=== PATIENT | male | born 1995 | race Caucasian/White ===

== ENCOUNTER 2018-01-29 01:05 | Inpatient (IN) | payer OTHER ==
[~2018-01-29] VITALS: Ht 175.3 cm; Wt 85.7 kg
[2018-01-29] VITALS (8 sets, daily range): BP systolic 95–147; BP diastolic 55–87
[~2018-01-29 01:05] MED LIST: CIPRO500 MG PO; COLACE1 EAC1 RC; DOXYCYCLINE 10100 MG PO; HYDROCODONE-AP1 EAC6 PO; HYDROCORTISONE30 G9 RECTAL; NOHOMEMEDICATIONS; TRAMADOL 50 MG50 MG PO
[2018-01-29] MEDS ORDERED: INDOMETHACIN 5050 M1 (01:21)
[2018-01-29 01:52] LABS: ABSOLUTE LYMPHOCYTES 1.8 thou/uL (0.8-5.3); ABSOLUTE MONOCYTES 1.1 thou/uL (0.0-1.2); ABSOLUTE NEUTROPHILS 9.7 thou/uL (1.6-8.1); BASOPHILS 0.3 %; EOSINOPHILS 0.2 %; HEMOGLOBIN 15.5 gm/dL (14.0-18.0); LYMPHOCYTES 14.1 %; MCHC 34.4 g/dL (28.0-37.0); MCV 84.2 fL (80.0-100.0); MPV 7.7 fl. (7.2-11.1); NUCLEATED RBCS 0 /100WBC; PLATELET COUNT* 205 thou/uL (150-400); POLYS 76.4 %; RBC 5.34 mil/uL (4.50-6.00); RDW-CV 13.7 % (10.5-14.5); WBC 12.6 thou/uL (4.0-11.0)
[2018-01-29 01:58] LABS: INR 1.1; PROTIME 10.7 Seconds (9.20-11.50)
[2018-01-29 02:06] LABS: CALCIUM 8.4 mg/dL (8.5-10.1); CREATININE 0.8 mg/dL (0.6-1.3); POTASSIUM 3.6 mmol/L (3.5-5.1)
[2018-01-29 02:12] LABS: ALBUMIN 3.8 g/dL (3.4-5.0); TOTAL BILIRUBIN 0.7 mg/dL (<0.1-1.0); TOTAL PROTEIN 7.6 g/dL (6.4-8.2); URIC ACID* 4.8 mg/dL (2.6-7.2)
[2018-01-29 04:05] LABS: ESR (SEDRATE) 18 mm/hr (0-15)
--- NOTE | 2018-01-29 07:41 | NUR ---
PT ADMITTED TO UNIT FROM ER. ASSESSMENT DOCUMENTED, FALL AGREEMENT WENT OVER, PT STATED UNDERSTANDING. PAIN MEDS GIVEN PER E-NOV. IV PATENT, FLUIDS INFUSING. ORTHO CONSULTED AND ASPIRATED KNEE. WILL CONTINUE WITH PLAN OF CARE.
[2018-01-29 08:05] LABS: CLARITY CLOUDY; COLOR AMBER; SOURCE SYNOVIAL; TOTAL VOLUME 39 ml
[2018-01-29 08:06] LABS: BF RBC 16100 /mm3; TOTAL CELL COUNT 82786 /mm3
[2018-01-29 08:51] LABS: BF LYMPHOCYTES 1 %; BF MONOCYTES 2 %; BF POLYS 97 %
[2018-01-29 15:20] LABS: SOURCE L.KNEE ASPIRATE
--- NOTE | 2018-01-29 17:03 | NUR ---
Pt in surgery during time SW was going to meet with pt; now pt is back on unit with his mom at bedside. SW to continue to follow to complete assessment and assist with any dc planning needs.
--- NOTE | 2018-01-29 18:38 | NUR ---
PATIENT HAS BEEN A/O X 4 THIS SHIFT. PATIENT HAD LEFT KNEE SURGERY THIS SHIFT. BULKY DRESSING IN PLACE AND HEMOVAC PATENT. NEW IV RESTARTED AND IV FLUIDS CONTINUE TO INFUSE. ID CONSULT NOTED. DIET RESUMED AFTER SURGERY. FAMILY AT BEDSIDE THIS AFTERNOON. HOURLY ROUNDING COMPLETED. CALL LIGHT WITHIN REACH. WILL CONTINUE WITH PLAN OF CARE.
[2018-01-30 04:00] VITALS: BP 104/42
--- NOTE | 2018-01-30 05:26 | NUR ---
PT SLEPT MOST OF SHIFT. ASSESSMENT DOCUMENTED. MEDS GIVEN PER E-NOV. PT STATED AT BEGINING OF SHIFT HE HAD A HEADACHE AND HIS LEFT KNEE PAIN WAS VERY BAD. DR SONIA MACIEL RECIEVED. IV PATENT, FLUIDS INFUSING. HEMAVAC IN PLACE. WILL CONTINUE WITH PLAN OF CARE.
[2018-01-30 08:30] VITALS: BP 117/72
--- NOTE | 2018-01-30 10:04 | OP ---
[address] [address] OPERATIVE REPORT Name: TYLER JONES Room: [address] IN M.R.#: [id number] Admission: 01/29/18 Attend Phys: Karis Salazar MD Discharge: Date of : 89 Report #: [id number] THIS REPORT FOR: //name// CC: [facility] physician/PCP Karis Salazar DICTATED BY: Priyank Paris DATE OF SERVICE: 01/29/2018 PREOPERATIVE DIAGNOSIS: Left knee septic arthritis. POSTOPERATIVE DIAGNOSIS: Left knee septic arthritis. PROCEDURE: Left knee arthroscopic lavage, synovectomy and intra-articular cultures. SURGEON: Ry Johnson DO [employer] LEAK TESTER: Priyank Paris DO ANESTHESIA: General. ESTIMATED BLOOD LOSS: 10 mL. SPECIMENS: Synovium and cultures. COMPLICATIONS: None apparent. ANTIBIOTICS: The patient is already on vancomycin. CONDITION: Stable, transferred to PACU. DISPOSITION: PACU to Med/Surg. PERTINENT HISTORY AND PHYSICAL: This is a 23-year-old male with quite significant new onset left knee pain and effusion. He presents to [facility], his left knee effusion was aspirated this morning and the aspirate came back concerning for septic arthritis left knee with a high cell count and percentage of PMNs. The cell count was 82,000 and the percent PMNs was 97%. He also had a high systemic white blood cell count and high inflammatory markers making the probability of septic arthritis very likely. We recommended left knee arthroscopic lavage and incision and drainage. We discussed the procedure to be performed in great detail including, but not limited to the risks, benefits, potential complications, and alternatives including, but not limited to infection, blood loss, [place] [address] OPERATIVE REPORT Name: KARENSANTOSHGRANT Luong Room: [address] M.R.#: [id number] Admission: 01/29/18 Attend Phys: Karis Salazar MD Discharge: Date of : 93 Report #: [id number] tissue, damage to blood vessels and nerves, continued pain, worsening pain, numbness, tingling, weakness, paralysis, loss of function, intraoperative fracture, postoperative fracture, damage to cartilage, damage to bone, posttraumatic arthritis, persistent infection, inability to ambulate, inability to use the leg, stiffness, loss of range of motion, need for repeat I and D, drain site morbidity, issues with drains, need for further surgery, complications with anesthesia, thrombus, as well as other imponderables. Again, we did discuss that he would possibly need a repeat I and D in the next couple of days and he understands this depending on how well he does postoperatively. He signed consent and wished to proceed. DESCRIPTION OF PROCEDURE: After written consent was obtained, the patient was transferred to the operative suite and placed in the supine position on the operative table. Anesthesia was induced via the anesthesia team. A well-padded pneumatic tourniquet was placed on the left thigh. The left lower extremity was placed in the arthroscopic leg velasco. The left lower extremity was sterilely prepped and draped with ChloraPrep times 2. Timeout was performed. The correct patient, surgical site, procedure to be performed, antibiotics and surgeon were confirmed. The lateral portal site made with a #15 blade knife followed by medial portal. Two trocars were inserted. Inflow and outflow were established. Immediately upon removal of the trocar cannula, there was melissa purulence expressed from the knee. This was collected and cultures were taken. Next, approximately 9 liters of arthroscopic fluid were lavaged through the knee. The camera was inserted through the lateral portal and arthroscopic grasper through the medial portal and a synovial biopsy was removed and sent for analysis. Next, arthroscopic shaver was inserted and arthroscopic synovectomy of the inflamed synovitic tissue was performed. When this deemed to be appropriate, the remainder of the fluid was lavaged through the knee. One medium Hemovac drain was inserted through the medial portal. The residual fluid was drained from the knee. All arthroscopic instruments were removed. The medial portal was closed with a 3-0 nylon suture in simple interrupted fashion as close as possible to the drain, which was coming out the portal site. The drain was then sewn in place with a nylon suture. The lateral portal was closed with a 3-0 nylon suture in simple interrupted fashion. Xeroform, 4 x 4s, ABD pads, sterile cast padding, and Vikas wrap were used as sterile dressing. Anesthesia was reversed via the anesthesia team. The patient was transferred back to the transfer cart and transferred to the postanesthesia care unit in stable condition. The patient appeared to tolerate this procedure well. There were no obvious complications apparent. Needle and sponge counts correct per the operating room team. [address] [address] OPERATIVE REPORT Name: TYLER JONES Room: [address] IN M.R.#: [id number] Admission: 01/29/18 Attend Phys: Karis Salazar MD Discharge: Date of : 93 Report #: [id number] DISPOSITION: Continue drain left knee. Continue antibiotics per primary and/or consult service. We will follow the patient for need for repeat I and D. <ELECTRONICALLY SIGNED> By: Ry Johnson DO 01/30/18 1004 [id number] Johnson DO /nt
--- NOTE | 2018-01-30 11:38 | CON ---
[address] [address] CONSULTATION Name: SANTOSH JONESGRANT Luong Room: [address] IN M.R.#: [id number] Admission: 01/29/18 Attend Phys: Karis Salazar MD Discharge: Date of : 93 Report #: [id number] THIS REPORT FOR: //name// CC: [facility] physician/PCP Karis Salazar DATE OF SERVICE: 01/29/2018 REFERRING PHYSICIAN: Dr. Cuevas, REASON FOR EVALUATION: Left knee septic arthritis. HISTORY OF PRESENT ILLNESS: Chart reviewed, patient examined. A 23-year-old man with known significant medical history who without apparent unseen injury, developed left knee pain, it became quite severe. He did have some night sweats and fevers up to 102.4. Denies any significant pulmonary or gastrointestinal related complaints. Aspirations showed marked elevated white count 82,786 ,97% polys, cultures are pending. Chest x-ray was otherwise clear. On questioning, he denies any particular risk factors. He works at [employer]. He has not had any recent travel, perhaps has had some animal exposure, although no one recent. He is not sexually active, although he denies any dietary indiscretion. He has not had recent dental procedure. Empirically placed on antimicrobials with vancomycin. ALLERGIES: None known. MEDICATIONS: Vancomycin, ondansetron, morphine as needed. PAST MEDICAL HISTORY: Previous surgeries to his stomach and his thigh as a child. Does have anxiety. 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 FAMILY HISTORY: Noncontributory. REVIEW OF SYSTEMS: As above. PHYSICAL EXAMINATION: GENERAL: Somewhat lethargic. He is in ulry-fk-ltqmikdx distress, appears generally well nourished. VITAL SIGNS: Temperature 98.5, after T-max of 102.2 overnight. Pulse 111, respirations 16, blood pressure 140/81. SKIN: Warm, dry, no rashes. HEENT: Unremarkable. NECK: [place] [address] CONSULTATION Name: JONESTYLER Room: [address] IN [facility]#: [id number] Admission: 01/29/18 Attend Phys: Karis Salazar MD Discharge: Date of : 93 Report #: [id number] LUNGS: Clear to auscultation. HEART: Tachycardic, regular. No appreciated murmur. ABDOMEN: Soft, nontender. EXTREMITIES: He has got a compressive dressing over the left distal thigh and proximal leg to involve the knee. GENITOURINARY: Deferred. RECTAL: Deferred. LABORATORY DATA: Gram stain of the synovial fluid shows many wbc's, no organisms. Fluid count, 16,100 red cells, 82,786 white cells, 97% polys, 2% monos, 1% lymphs. Chest x-ray was unremarkable. Knee plain film showed no fracture. CBC: White count of 12.6, H and H 15.5 and platelets of 205. Sed rate of 18. Lactic acid 1.1. CRP of Liver functions unremarkable. Albumin 3, total protein 7.6. ASSESSMENT: Inflammatory process involving the left knee, certainly would be concerned about septic etiology. Agree with empiric antimicrobial therapy, would expect a bacteremic seeding. Other considerations include crystal arthropathy, plus reactive arthritis. We will check urine studies. Await results. <ELECTRONICALLY SIGNED> By: Bao Kaiser MD 01/30/18 1138 1051 1248Jokary Kaiser MD /nt
[2018-01-30 14:09] LABS: BODY FLUID PROTEIN 2.5 g/dL (())
--- NOTE | 2018-01-30 15:44 | NUR ---
CM SPOKE TO THE PATIENT TO DISCUSS HOME SITUATION, DISCHARGE PLANNING, AND TO INFORM OF THE ROLE OF CM. PATIENT ALERT, ORIENTED, ACTIVE AND INDEPENDENT. PATIENT WORKS AND DRIVES. PATIENT INFORMS THAT HE HAS A SET OF CRUTCHES THAT WERE LENT TO HIM. PATIENT DOES NOT CURRENTLY HAVE INSURANCE. CM PROVIDED PATIENT A COMMUNITY RESOURCE LIST, LIST OF SAFETY NET CLINICS, AND A PRESCRIPTION ASSISTANCE CARD. CM WILL REMAIN AVAILABLE TO ASSIST AND FOLLOW NEEDED.
[2018-01-30 16:58] VITALS: BP 131/83
--- NOTE | 2018-01-30 18:29 | NUR ---
PATIENT IS ALERT AND ORIENTED TODAY VERY PLEASANT. UP WITH STAND BY ASSIST TO THE RESTROOM. VITAL SIGNS ON ROOM AIR. SOME PAIN THAT IS SOMEWHAT CONTROLLED WITH IV AND ORAL PAIN MEDICATIONS. DRAIN IN LEFT KNEE IS NOT WORKING, HEMOVAC IS LEAKING, GOING TO [facility]AM[facility] AND SEE THAT HELPS, ORTHO NOTIFIED AND THEY WILL CHECK ON IT TOMORROW. CALL LIGHT IS IN REACH, WILL CONTINUE TO MONITOR.
[2018-01-30 19:45] VITALS: BP 111/78
--- NOTE | 2018-01-31 05:09 | NUR ---
PT SLEPT AT INTERVALS LATER IN THE NIGHT, IV FLUIDS AND VANC GIVEN, PLEASANT, FAMILY HERE UNTIL LATE LAST NIGHT, PT NPO SINCE MIDNIGHT FOR POSSIBLE PROCEDURE LATER TODAY. PRN PAIN, ELEVATION AND ICE GIVEN FOR LEFT KNEE PAIN, UP SBA TO THE BATHROOM, CALL LIGHT IN REACH, WILL CONTINUE TO MONITOR
[2018-01-31 16:02] VITALS: BP 139/80
--- NOTE | 2018-01-31 16:41 | NUR ---
SW followed up with pt. SW was told that pt asking questions about billing. Pt told SW that he called and spoke with billing who advised pt to wait until receiving bill and then pt could follow up with financial assistance at that time. Pt did not have any other questions or anticipated dc needs. SW to continue to follow.
--- NOTE | 2018-01-31 17:48 | NUR ---
PATIENT IS ALERT AND ORIENTED VERY PLEASANT. VITAL SIGNS STABLE ON ROOM AIR. HAS BEEN UP WALKING [place] TODAY AND [facility]. SOME COMPLAINTS OF MILD PAIN BUT HAS ONLY NEEDED ORAL PAIN MEDICATION ONE TIME TODAY. IV ANTIBIOTICS RUNNING. CALL LIGHT IS IN REACH, WILL CONTINUE TO MONITOR.
[2018-01-31 20:20] VITALS: BP 133/78
--- NOTE | 2018-02-01 05:13 | NUR ---
PT SLEPT AT INTERVALS DURING THE NIGHT, IV ANTIBITOICS GIVEN, NEW IV STARTED EARLY THIS AM, PLEASANT, ORAL PAIN MED AT HS, PLEASANT, UP SBA TO THE BATHROOM, STONE WRAP INTACT TO LEFT KNEE, CALL LIGHT IN REACH, WILL CONTINUE TO MONITOR
[2018-02-01 08:15] VITALS: BP 132/70
[2018-02-01 11:40] VITALS: BP 133/78
[2018-02-01] MEDS ORDERED: ASPIRIN325 PO (11:44)
--- NOTE | 2018-02-01 11:44 | NUR ---
CONSULTED TO PLACE PICC FOR RESTAURANT LEAD ATB FOR SEPTIC KNEE. RISK AND BENIFIT DISCUSSED WITH PT. VOICED UNDERTANDING AND AGREED. ORDER AND CONSENT NOTED. RIGHT UPPER ARM ASSESSED. UPPER BASILIC IDENTIFIED AND NOTED TO BE WIDLEY PATENT. 4FR POWER INJECTABLE SINGLE LUMAN PICC PLACED PER HOSPITAL POLICY. LINE TRIM AT 48CM AND ADVANCED 48CM LEAVING 0CM EXTERNAL. LINE SECURED AND RELEASED FOR IMMEDIATE USE.
[2018-02-01] MEDS ORDERED: MIRALAX17 GM PO (11:45)
[2018-02-01] MEDS ORDERED: CEFTRIAXONE2 G1 IVPB (11:47)
[2018-02-01] MEDS ORDERED: DOXYCYCLINE 10100 MG IVPB (11:48)
[2018-02-01] MEDS ORDERED: TRAMADOL 50 MG50 MG PO (11:48)
--- NOTE | 2018-02-01 12:36 | NUR ---
PATIENT HAS BEEN ALERT AND ORIENTED TODAY VERY PLEASANT. UP AD INGA IN ROOM. PICC STARTED INSERTED TODAY IN RIGHT UPPER ARM, PATIENT IS BEING DISCHARGED TO HOME WAITING ON CASE MANAGEMENT TO SET UP OUTPATIENT IV ANTIBIOTICS. CALL LIGHT IS IN REACH, WILL PASS ON REPORT TO NEXT NURSE.
--- NOTE | 2018-02-01 15:50 | NUR ---
Dr Kaiser discussed need for pt to have IV abx at dc. MINDA discussed what options pt might have with OP therapy infusion at [facility]--Pt pay would be $412.50 per day. MINDA called and faxed info to [facility] and chilel per day would be over $80/day and upfront cost needed over $200. MINDA faxed referral and info to [facility] and Amanda called MINDA and provided info on pt to sign letter of agreement if Medicaid not active within 90 days, then pt responsible for cost and to work out payments with [facility]. [facility] nurse came to meet with pt and provide teaching. Pt and pt family to assist with administering and pt to return for labs once a week. Pt in agreement with plan. Pt to dc home with family support today, Thursday 02/01.
[2018-02-01 15:56] VITALS: BP 133/78
--- NOTE | 2018-02-01 17:15 | NUR ---
PATIENT DISCHARGED TO HOME ON IV ANTIBIOTICS. TEACHING DONE BY VALENCIA, SUPPLIES ARE TO BE DELIVERED TO HOUSE. PICC LINE IN PLACE. IV REMOVED. DISCHARGE PAPERS REVIEWED AND SIGNED. PRESCRIPTION AND INFORMATION SHEETS GIVEN. PATIENT DENIES ANY FURTHER NEEDS. PATIENT TAKEN BY WHEELCAHIR TO EXIT. LEFT WITH GRANDMOTHER.
--- NOTE | 2018-02-06 11:11 | PATH ---
[address] [address] PATHOLOGY RPT PROCEDURE Name: TYLER JONES Room: [address] IN M.R.#: [id number] Admission: 01/29/18 Date of : 89 Discharge: 02/01/18 Report #: [id number] Path Case #: [id number] [facility] Accession Number: [id number] . 01 Material submitted: . SYNOVIAL BIOPSY LEFT KNEE . 01 Clinical history: . Arthritic septic left knee . 02 Diagnosis: Left knee synovial biopsy: - Severe nonspecific acute synovitis, negative for granulomas. See comment. (PAKO:michi; 01/31/2018) QMS/01/31/2018 . 02 Comment: The crystal analysis of synovial fluid from this patient submitted separately from the left knee aspirate ([facility] specimen #[id number]) showed no pathologic crystals. . 02 Electronically signed: . Wild Salguero MD, Pathologist NPI- [id number] . 01 Gross description: . The specimen is received in formalin, labeled "Tyler Jones, left knee synovial biopsy". Received are multiple segments of pale rodriguez fibrous soft tissue measuring 0.8 x 0.7 x 0.2 cm in aggregate dimensions. The specimen is filtered and entirely submitted in cassette A1. (CAA; 01/30/2018) QAC/QAC . 02 Pathologist provided ICD-10: M65.862 . 02 CPT . 381709 Performed at: [address] [facility] [address], [place] [id number] MD Nikolai Wick MD Phone: [phone] Performed at: 02 [facility] [address] [address], [place], [place] [id number] MD Wild Salguero MD Phone: [phone]
--- NOTE | 2018-02-07 11:12 | PATH ---
[address] [address] PATHOLOGY RPT PROCEDURE Name: TYLER JONES Room: [address] IN [facility]#: [id number] Admission: 01/29/18 Date of : 89 Discharge: 02/01/18 Report #: [id number] Path Case #: [id number] Note [facility] Accession Number: [id number] TESTS RESULT FLAG UNITS REF RANGE LAB Clinician Provided Cytology Information No. of containers..01 Other (Miscellaneous) Source: 01 SYNOVIAL FLUID DIAGNOSIS: 02 SYNOVIAL FLUID (SITE NOT FURTHER SPECIFIED) NO MALIGNANT CELLS IDENTIFIED. ABUNDANT NEUTROPHILS AND MONONUCLEAR CELLS. (PAKO/db; 01/30/18) This case was prepared and proofread by Dr. Wild Salguero and electronically released by Dr. Almonte Clinical history: 01 Septic left knee Signed out by: 02 Weston Almonte MD, Pathologist NPI- [id number] Performed by: 01 Jason Mckeon, Gender Studies Professor ([facility]) Gross description: 01 20 ML, MCCARTHY, CLOUDY /LCS FLAG LEGEND: L-Low Normal,H-High Normal,LL-Alert Low,HH-Alert High <-Panic Low,>-Panic High,A-Abnormal,AA-Critical Abnormal Performed at: [address] [address] Nikolai Wick MD, [address] [address] Kel Landers MD, Performed at: [address] [id number] MD Nikolai Wick MD Phone: [phone]
== END 2018-02-01 17:15 | disposition home or self-care (01) | DRG 549 ==
LOC: M.ERS 01:05 → M.3W 02:16 → M.TBA-ER 02:16 → M.3W 03:09
PROVIDERS: Family Medicine; Orthopaedic Surgery; ADMIT Internal Medicine
PROC: 0SBD4ZX Excision of Left Knee Joint, Percutaneous Endoscopic Approach, Diagnostic (ICD-10-PCS; principal; 2018-01-29)
PROC: 05HB33Z Insertion of Infusion Device into Right Basilic Vein, Percutaneous Approach (ICD-10-PCS; 2018-02-01)
DX: M00.9 Pyogenic arthritis, unspecified (principal); R65.10 Systemic inflammatory response syndrome (SIRS) of non-infectious origin without acute organ dysfunction; M25.462 Effusion, left knee; F41.9 Anxiety disorder, unspecified; F17.210 Nicotine dependence, cigarettes, uncomplicated